=== PATIENT | female | born 1980 | race Caucasian/White ===

== ENCOUNTER 2017-02-23 16:20 | Emergency (ER) | payer OTHER ==
--- NOTE | 2017-02-23 16:29 | PDOC ---
History of Present Illness - History of Present Illness Initial Comments: 02/23/17 17:10 The patient is a 36 year old female with no PMHx who presents to the ED with left sided back pain for a week. The patient reports the pain has gotten progressively worse. She states the pain wraps around and radiates to her abdomen. She describes it as a burning pain. She reports associated lightheadedness and nausea when the pain is at its peak. She reports one episode of vomiting today. She states that she went to a chiropractor and an osteopath, who told her it was musculoskeletal pain. She reports occasional alcohol and marijuana use. She reports traveling from [facility] about 3 weeks ago. She denies diarrhea or constipation. She denies dysuria or hematuria. She denies vaginal bleeding or discharge. She denies fever or chills. FHx: paternal HTN, HLD <Teresa Sanches - Last Filed: 02/23/17 17:09> <Rolando Orozco - Last Filed: 02/24/17 07:21> - General Chief Complaint: Back Pain Stated Complaint: BACK PAIN Time Seen by Provider: 02/23/17 16:28 Past History <Teresa Sanches - Last Filed: 02/23/17 17:09> <Rolando Orozco - Last Filed: 02/24/17 07:21> - Past Medical History Allergies/Adverse Reactions: Allergies Allergy/AdvReac Type Severity Reaction Status Date / Time codeine AdvReac Nausea Verified 02/23/17 17:09 Home Medications: Ambulatory Orders Ketorolac Tromethamine [Toradol] 10 mg PO Q6H #20 tablet 02/23/17 Review of Systems - Review of Systems Comments:: 02/23/17 17:10 CONSTITUTIONAL: Absent: fever, no chills, no fatigue EYES: Absent: visual changes ENT: Absent: ear pain, no sore throat CARDIOVASCULAR: Absent: chest pain, no palpitations RESPIRATORY: Absent: cough, no SOB GI: Present: abdominal pain, nausea, vomiting Absent: no constipation, no diarrhea GENITOURINARY: Absent: dysuria, no frequency, no hematuria MUSCULOSKELETAL: Present: left sided back pain Absent: no arthralgia, no myalgia SKIN: Absent: rash NEURO: Present: lightheadedness Absent: headache <Teresa Sanches - Last Filed: 02/23/17 17:09> *Physical Exam - Physical Exam Comments: 02/23/17 17:10 GENERAL: Well-appearing, well-nourished. No apparent distress. HEENT: Normocephalic, atraumatic. PERRL, EOM intact. CARDIOVASCULAR: Normal S1, S2. Regular rate and rhythm. PULMONARY: Clear to auscultation bilaterally. ABDOMEN: Soft, non-distended, non-tender. BS are normal. NO mass or tenderness to palpation. No CVA tenderness. BACK: No deformity, no sign of inflammation or point tenderness over ribs or musculature, although patient indicated pain in the left flank. EXTREMITIES: Normal ROM in all four extremities. No gross deformities. SKIN: Warm, dry. No rash NEUROLOGICAL: No focal neurological deficits. <Teresa Sanches Last Filed: 02/23/17 17:09> ED Treatment Course - ADDITIONAL ORDERS Additional order review: Laboratory Results 02/23/17 16:30 Urine Color Yellow Urine Appearance Clear Urine pH 7.0 Ur Specific [place] 1.010 Urine Protein Negative Urine Glucose (UA) Negative Urine Ketones 1+ H Urine Blood Trace-intact Urine Nitrite Negative Urine Bilirubin Negative Urine Urobilinogen 0.2 e.u/dl Ur Leukocyte Esterase Negative Urine HCG, Qual Negative <Teresa Sanches Last Filed: 02/23/17 17:09> Medical Decision Making - Medical Decision Making 02/23/17 17:39 Physical exam is entirely normal. There is no abdominal or CVAT. No pelvic tenderness. Urine trace blood and with the severe intermittent pain accompanied by nausea and vomiting, kidney stone is possible. This was discussed with the patient, and it was decided that a CT would be performed. Urine test is negative. CT is negative for stone, also negative for any other sign of abdominal disease. The only explanation seems to be severe musculoskeletal strain over intercostal nerve syndrome. The patient does state that the pain began after taking along uncomfortable flight from [facility] back to [place]. A course of Toradol was suggested. Rest, massage, and other physical modalities discussed. If the pain worsens, nausea or vomiting recurs, or other symptoms develop, she is instructed to return to the emergency room or consult her primary physician. She is fully ambulatory and in no pain or other discomfort upon discharged to follow-up as directed <Rolando Orozco - Last Filed: 02/24/17 07:21> *DC/Admit/Observation/Transfer - Attestations Scribe Attestion: 02/23/17 17:10 Documentation prepared by Teresa Sanches, acting as medical assisting instructor for Rolando Falcon MD. <Teresa Sanches - Last Filed: 02/23/17 17:09> - Discharge Dispostion Admit: No <Rolando Orozco - Last Filed: 02/24/17 07:21> Diagnosis at time of Disposition: Musculoskeletal pain - Discharge Dispostion Disposition: HOME Condition at time of disposition: Stable - Prescriptions Prescriptions: Ketorolac Tromethamine [Toradol] 10 mg PO Q6H #20 tablet - Patient Instructions Printed Discharge Instructions: DI for Musculoskeletal Pain Additional Instructions: Rest, Avoid exertion with the upper body including bending and lifting and carrying heavy bags. Anti-inflammatory medication as directed. Stretching, massage, avoid prolonged sitting. Consult architectural engineering teacher, physical therapist, or pain management doctor if no improvement in one week.
[2017-02-23 16:37] LABS: URINE APPEARANCE Clear; URINE BILIRUBIN Negative (NEGATIVE); URINE BLOOD Trace-intact (NEGATIVE); URINE GLUCOSE (UA) Negative (NEGATIVE); URINE KETONE 1+ (NEGATIVE); URINE LEUK ESTERASE Negative (NEGATIVE); URINE NITRITE Negative (NEGATIVE); URINE PROTEIN Negative (NEGATIVE); URINE UROBILINOGEN 0.2 E.U/dl (0.2-1.0)
[2017-02-23 16:38] LABS: URINE COLOR YELLOW
[2017-02-23] MEDS ORDERED: KETOROLAC TROMETHAMINE 30 MG/1 ML VIAL IVPUSH ONE (17:01)
[2017-02-23 17:26] VITALS: BP 101/54; PULSE 65; TEMP 98.7; BMI 20.3
== END 2017-02-23 19:10 | disposition home or self-care (01) ==
LOC: FER 16:20
PROC: 3E033GC Introduction of Other Therapeutic Substance into Peripheral Vein, Percutaneous Approach (ICD-10-PCS; principal; 2017-02-23)
PROC: 3E0333Z Introduction of Anti-inflammatory into Peripheral Vein, Percutaneous Approach (ICD-10-PCS; 2017-02-23)
PROC: 3E0337Z Introduction of Electrolytic and Water Balance Substance into Peripheral Vein, Percutaneous Approach (ICD-10-PCS; 2017-02-23)
DX: K31.84 Gastroparesis (principal); F17.210 Nicotine dependence, cigarettes, uncomplicated
CPT/HCPCS: 74176; 81003; 84703; 99284-25

== ENCOUNTER 2017-02-24 15:15 | Emergency (ER) | payer OTHER ==
--- NOTE | 2017-02-24 15:21 | PDOC ---
History of Present Illness - General History Source: Patient Exam Limitations: No Limitations - History of Present Illness Initial Comments: 02/24/17 16:21 The patient is a 36 year old female with no significant past medical history. The patient was discharged from the emergency department yesterday, 02/24/17, with complaints of left sided flank pain. An abdominal pelvic CT was performed and negative.The patient was discharged with Toradol. The patient returns to the emergency room today with worsened left sided flank pain that started to radiate to the LUQ. The patient states she woke up in the middle of the night last night in excruciating pain. She took the toradol, with mild relief. The patient states that the pain has progressively worsened today. The patient is walking back and forth secondary to the discomfort caused by the pain. The patient reports 1 episode of vomiting this morning. She had a normal bowel movement this morning and states that she is drinking fluids to stay hydrated. The patient also reports using a heating pad and taking a bath to relieve the pain. She denies fever, chills. She denies chest pain, SOB, cough. Allergies: codeine Social Hx: No tobacco use. Social alcohol use. <Jackie Mckeon - Last Filed: 02/24/17 16:36> <Rolando Orozco - Last Filed: 02/24/17 19:17> - General Chief Complaint: Pain Stated Complaint: BACK PAIN, LEFT UPPER ABD PAIN Time Seen by Provider: 02/24/17 15:20 Past History <Jackie Mckeon - Last Filed: 02/24/17 16:36> - Psycho/Social/Smoking Cessation Hx Anxiety: No Suicidal Ideation: No Smoking History: Current some day smoker Have you smoked in the past 12 months: Yes Number of Cigarettes Smoked Daily: 1 'Breaking Loose' booklet given: 02/23/17 Hx Alcohol Use: (2-5 glasses of wine weekly) <Rolando Orozco - Last Filed: 02/24/17 19:17> - Past Medical History Allergies/Adverse Reactions: Allergies Allergy/AdvReac Type Severity Reaction Status Date / Time codeine AdvReac Nausea Verified 02/24/17 15:19 Home Medications: Ambulatory Orders Ketorolac Tromethamine [Toradol] 10 mg PO Q6H #20 tablet 02/23/17 Cyclobenzaprine HCl [Flexeril 10 mg] 10 mg PO TID #15 tablet 02/24/17 Metoclopramide HCl [Reglan] 10 mg PO TID #30 tablet 02/24/17 Pantoprazole Sodium [Protonix] 40 mg PO DAILY #14 tablet. 02/24/17 Review of Systems - Review of Systems Able to Perform ROS?: Yes Comments:: 02/24/17 16:22 CONSTITUTIONAL: Absent: fever, chills, diaphoresis, generalized weakness, malaise, loss of appetite HEENT: Absent: rhinorrhea, nasal congestion, throat pain, throat swelling, difficulty swallowing, mouth swelling, ear pain, eye pain, visual Changes CARDIOVASCULAR: Absent: chest pain, syncope, palpitations, irregular heart rate, lightheadedness , peripheral edema RESPIRATORY: Absent: cough, shortness of breath, dyspnea with exertion, orthopnea, wheezing, stridor, hemoptysis GASTROINTESTINAL: Present: LUQ pain Absent:, abdominal distension, nausea, vomiting, diarrhea, constipation, melena , hematochezia GENITOURINARY: Present: left flank pain Absent: dysuria, frequency, urgency, hesitancy, hematuria, genital pain MUSCULOSKELETAL: Absent: myalgia, arthralgia, joint swelling SKIN: Absent: rash, itching, pallor HEMATOLOGIC/IMMUNOLOGIC: Absent: easy bleeding, easy bruising, lymphadenopathy, frequent infections ENDOCRINE: Absent: unexplained weight gain, unexplained weight loss, heat intolerance, cold intolerance NEUROLOGIC: Absent: headache, focal weakness or paresthesias, dizziness, unsteady gait, seizure, mental status changes, bladder or bowel incontinence PSYCHIATRIC: Absent: anxiety, depression, suicidal or homicidal ideation, hallucinations. <Jackie Mckeon - Last Filed: 02/24/17 16:36> *Physical Exam - Vital Signs Last Vital Signs Temp Pulse Resp BP Pulse Ox 98.5 F 68 18 108/63 97 02/24/17 15:15 02/24/17 15:15 02/24/17 15:15 02/24/17 15:15 02/24/17 15:15 - Physical Exam Comments: 02/24/17 16:22 GENERAL: Well developed, well nourished. Awake and alert. In no acute distress. HEENT: Normocephalic, atraumatic. PERRLA, EOMI. No conjunctival pallor. Sclera are non- icteric. Moist mucous membranes. Oropharynx is clear. NECK: Supple. Full ROM. No JVD. Carotid pulses 2+ and symmetric, without bruits. No thyromegaly. No lymphadenopathy. CARDIOVASCULAR: Regular rate and rhythm. No murmurs, rubs, or gallops. Distal pulses are 2+ and symmetric. PULMONARY: No evidence of respiratory distress. Lungs clear to auscultation bilaterally. No wheezing, rales or rhonchi. ABDOMINAL: Mild distension, but normal bowel sounds. Mild tenderness over the LUQ, and it was tympanitic in this area. No CVAT. No guarding or rebound. Soft. MUSCULOSKELETAL Normal range of motion at all joints. No bony deformities or tenderness. EXTREMITIES: No cyanosis. No clubbing. No edema. No calf tenderness. SKIN: Warm and dry. Normal capillary refill. No rashes. No jaundice. NEUROLOGICAL: Alert, awake, appropriate. Cranial nerves 2-12 intact. No deficits to light touch and temperature in face, upper extremities and lower extremities. No motor deficits in the in face, upper extremities and lower extremities. Normoreflexic in the upper and lower extremities. Normal speech. Toes are downgoing bilaterally. Gait is normal without ataxia. PSYCHIATRIC: Cooperative. Good eye contact. Appropriate mood and affect. <Jackie Mckeon - Last Filed: 02/24/17 16:36> ED Treatment Course - LABORATORY CBC & Chemistry Diagram: 02/24/17 16:00 02/24/17 16:00 - ADDITIONAL ORDERS Additional order review: Laboratory Results 02/24/17 16:00 Urine Color Yellow Urine Appearance Clear Urine pH 7.0 Ur Specific [place] 1.020 Urine Protein Trace Urine Glucose (UA) Negative Urine Ketones 2+ H Urine Blood Trace-intact Urine Nitrite Negative Urine Bilirubin 1+ H Urine Urobilinogen 0.2 e.u/dl Ur Leukocyte Esterase 1+ H - RADIOLOGY Radiograph Interpretation: 02/24/17 16:36 The report from yesterday's Abdominal pelvis CT (02/23/17) was reviewed: EXAM#: TYPE/EXAM: RESULT: [id number] CT/SPIRAL- RENAL-STONE CT Abdominal pain. Microhematuria. Left side flank pain CT scan of the abdomen pelvis without oral and intravenous contrast Coronal and sagittal reformatted images were obtained The visualized lung base appears unremarkable and the heart is within normal limits in size. Evaluation of the liver, spleen, pancreas, gallbladder and both adrenal glands appear unremarkable. The stomach is partially distended limiting evaluation of its wall. Both kidneys are within normal limits in size. There is no evidence of hydroureteronephrosis, renal or ureteral stone , bilaterally.. There is no evidence of small bowel obstruction or enlarged retroperitoneal lymph nodes. Normal-appearing terminal ileum. The appendix is not identified. Normal stool burden in the colon without wall thickening. Questionable few diverticula in the descending and sigmoid colon without evidence of diverticulitis. No free air or free fluid in the abdomen and pelvis. Normal size anteverted uterus. Partially distended urinary bladder without wall thickening or intraluminal stones. Focal low-attenuation density in the right and left adnexa compatible with bilateral ovarian follicles/small cysts. Air is present in the vagina. Perirectal and pericecal fat is clear. Visualized osseous structures appear intact. Impression: No CT evidence of an acute process in the abdomen pelvis. There is no evidence of hydroureteronephrosis, renal or ureteral stone, bilaterally. Correlate clinically to determine further evaluation and follow-up. Reported By: Laura Loza MD 02/23/17 1844 <Jackie Mckeon - Last Filed: 02/24/17 16:36> - LABORATORY CBC & Chemistry Diagram: 02/24/17 16:00 02/24/17 16:00 <Rolando Orozco - Last Filed: 02/24/17 19:17> Medical Decision Making - Medical Decision Making 02/24/17 19:13 After treatment today with Toradol and Zofran intravenously, the patient's pain and nausea resolved, as it did yesterday with similar treatment. However, she states that the oral Toradol at home has not been helping. The location of the pain today in the sense of bloating in her stomach may suggest gastritis or gastroparesis with incomplete emptying. Gastroenterology consultation was recommended, with possible endoscopy. The patient has a hat brim curler and will arrange a consultation. In the meantime, in case incomplete emptying is partially responsible, a trial of Reglan will be instituted. Protonix and when necessary antacids were also prescribed. The patient knows that she can return to the emergency room if her pain is increased or other symptoms develop. She is pain-free upon discharge and fully ambulatory. <Rolando Orozco - Last Filed: 02/24/17 19:17> *DC/Admit/Observation/Transfer - Attestations Scribe Attestion: 02/24/17 16:23 Documentation prepared by LEX Robins, acting as medical record librarian for Rolando Orozco MD. <Jackie Mckeon - Last Filed: 02/24/17 16:36> - Discharge Dispostion Admit: No <Rolando Orozco - Last Filed: 02/24/17 19:17> Diagnosis at time of Disposition: Gastroparesis - Discharge Dispostion Disposition: HOME Condition at time of disposition: Improved - Prescriptions Prescriptions: Cyclobenzaprine HCl [Flexeril 10 mg] 10 mg PO TID #15 tablet Pantoprazole Sodium [Protonix] 40 mg PO DAILY #14 tablet. Metoclopramide HCl [Reglan] 10 mg PO TID #30 tablet - Referrals Referrals: Ralf Cobos MD [Staff Physician] - - Patient Instructions Additional Instructions: It is not completely clear the cause of the recurrent pain. It appears that it may be related to your stomach, either an increased acid condition or spasm or incomplete emptying. A musculoskeletal condition or pinched nerve is also a possibility, as was discussed yesterday The CAT scan showed no conclusive findings, specifically no evidence of a kidney stone The next step is probably an evaluation by a hat brim curler, with upper endoscopy to evaluate the stomach and duodenum.
[2017-02-24 15:23] VITALS: BP 108/63; PULSE 68; TEMP 98.5; BMI 20.3
[2017-02-24] MEDS ORDERED: PANTOPRAZOLE SODIUM 40 MG in SODIUM CHLORIDE 100 ML IVPB ONE (16:00)
[2017-02-24] MEDS ORDERED: ONDANSETRON 4 MG/2 ML VIAL IVPB ONE (16:00)
[2017-02-24] MEDS ORDERED: SODIUM CHLORIDE 1,000 ML IV STA (16:00)
[2017-02-24] MEDS ORDERED: MAG HYDROX/AL HYDROX/SIMETH 355 ML ORAL.SUSP PO ONE (16:01)
[2017-02-24] MEDS ORDERED: ONDANSETRON 4 MG/2 ML VIAL ONE (16:11)
[2017-02-24] MEDS ORDERED: MAG HYDROX/AL HYDROX/SIMETH 30 ML UNIT-DOSE CUP ONE (16:11)
[2017-02-24] MEDS ORDERED: PANTOPRAZOLE SODIUM 40 MG VIAL ONE (16:12)
[2017-02-24 16:17] LABS: URINE APPEARANCE Clear; URINE BILIRUBIN 1+ (NEGATIVE); URINE BLOOD Trace-intact (NEGATIVE); URINE GLUCOSE (UA) Negative (NEGATIVE); URINE KETONE 2+ (NEGATIVE); URINE NITRITE Negative (NEGATIVE); URINE PROTEIN Trace (NEGATIVE); URINE UROBILINOGEN 0.2 E.U/dl (0.2-1.0)
[2017-02-24 16:18] LABS: URINE COLOR YELLOW; URINE LEUK ESTERASE 1+ (NEGATIVE)
[2017-02-24 16:23] LABS: BASOPHIL 0.5 % (0-2.0); EOSINOPHIL 1.1 % (0-4.5); MCH 29.7 pg (25.7-33.7); MCHC 33.5 g/dl (32.0-36.0); MEAN CELL VOLUME 88.6 fl (80-96); MEAN PLT VOLUME 7.6 fl (7.5-11.1); NEUTROPHILS 70.5 % (42.8-82.8); PLATELET COUNT 274 K/MM3 (134-434); RDW 11.4 % (11.6-15.6); WHITE BLOOD COUNT 5.8 K/mm3 (4.0-10.8)
[2017-02-24 16:35] LABS: ALBUMIN 4.5 g/dl (3.5-5.0); ALK PHOS 34 U/L (32-92); ANION GAP 9 (8-16); BILIRUBIN,TOTAL 2.1 mg/dl (0.2-1.0); CO2 26 mmol/L (22-28); CREATININE 0.8 mg/dl (0.6-1.3); GLUCOSE,RANDOM 98 mg/dl (74-106); SGOT/AST 15 U/L (10-42); SGPT/ALT 15 U/L (10-40); TOT PROT 6.8 g/dl (6.4-8.3)
[2017-02-24] MEDS ORDERED: METOCLOPRAMIDE HCL INJECTION 10 MG/2 ML VIAL IVPB ONE (17:21)
[2017-02-24] MEDS ORDERED: KETOROLAC TROMETHAMINE 30 MG/1 ML VIAL IVPUSH ONE (17:46)
[2017-02-24] MEDS ORDERED: KETOROLAC TROMETHAMINE 30 MG/1 ML VIAL ONE (17:51)
[2017-02-24 22:29] LABS: URINE RBC 0-2 /hpf (0-3)
[2017-02-24 22:30] LABS: URINE BACTERIA FEW /hpf (NEGATIVE)
== END 2017-02-24 19:18 | disposition home or self-care (01) ==
LOC: FER 15:15
PROC: 3E033GC Introduction of Other Therapeutic Substance into Peripheral Vein, Percutaneous Approach (ICD-10-PCS; principal; 2017-02-24)
PROC: 3E0333Z Introduction of Anti-inflammatory into Peripheral Vein, Percutaneous Approach (ICD-10-PCS; 2017-02-24)
PROC: 3E0337Z Introduction of Electrolytic and Water Balance Substance into Peripheral Vein, Percutaneous Approach (ICD-10-PCS; 2017-02-24)
DX: K31.84 Gastroparesis (principal)
CPT/HCPCS: 36415; 80053; 81003; 81015; 85025; 99285-25